=== PATIENT | female | born 1970 | race Caucasian/White ===

== ENCOUNTER 2021-11-07 11:01 | Emergency (ER) | payer SELFPAY ==
[2021-11-07 11:11] VITALS: BP 165/99; PULSE 60; RESP 16; TEMP 36.6; O2SAT 100; BMI 23.5
--- NOTE | 2021-11-07 11:19 | XR_ITS ---
WS: [id number] XR knee RT 3V* [id number] REASON FOR EXAM: injury FINDINGS: No acute fracture. Joint spaces of the right knee are intact and well preserved. No soft tissue abnormality. XR/XR knee RT 3V* [id number] IMPRESSION: No acute abnormality.
--- NOTE | 2021-11-07 11:19 | XRR_ITS ---
PROCEDURE INFORMATION: Exam: XR Chest Exam date and time: 11/07/2021 11:29 AM Age: 51 years old Clinical indication: Injury or trauma; Other: Struck by cow; Blunt trauma (contusions or hematomas); Additional info: Injury, struck by cow a week ago TECHNIQUE: Imaging protocol: XR of the chest. Views: 2 views. COMPARISON: No relevant prior studies available. FINDINGS: Lungs: Unremarkable. No consolidation. Pleural spaces: Unremarkable. No pleural effusion. No pneumothorax. Heart/Mediastinum: Unremarkable. No cardiomegaly. Bones/joints: Unremarkable. XR/XR chest 2V* [id number] IMPRESSION: No acute findings.
--- NOTE | 2021-11-07 11:21 | XR_ITS ---
WS: [id number] XR sternum min 2V [id number] REASON FOR EXAM: injury FINDINGS: Normal manubrium and sternomanubrial junction. There is a mild posterior angulation deformity in the mid sternum which could represent a subacute st ernal fracture. No associated soft tissue swelling is identified. No other significant finding. XR/XR sternum min 2V [id number] IMPRESSION: Sternal abnormality as above.
--- NOTE | 2021-11-07 11:21 | W.ED.CHESTPA ---
HPI - Chest Pain General: Chief Complaint: Chest Pain Stated Complaint: hit by a cow, chest pain Time Seen by Provider: 11/07/21 11:18 History of Present Illness: Patient was struck in the center of her chest by cow last Thursday. Patient states that she has pain in her sternal area with deep inspiration and movement of her arms. Denies cough shortness of breath or other related pains. Patient does have some swelling to her right knee, does not complain pain about it but this occurred after injury. Associated symptoms: Deny abdominal pain, dyspnea, fever(s), nausea or vomiting Review of Systems Const: Denies: fever(s), chills or body aches Eyes: Denies: eye discomfort ENMT: Denies: throat pain Card: Reports: chest pain (Pain to sternal area after injury that occurred last Thursday) Resp: Denies: dyspnea GI: Denies: abdominal pain, nausea or vomiting Musc: Reports: joint swelling (Right knee.) Skin/Breast: Denies: rash Neuro: Denies: headache(s) Psych: Denies: depression or suicidal ideation PFSH ED PFSH: Medical History Depression Surgical History Hx of knee surgery Family History Other Cancer Social History Smoking and tobacco status: never smoked Alcohol intake: never Course Vital Signs: Vital signs: Vital Signs Temperature 97.8 F 11/07/21 11:11 Pulse Rate 60 11/07/21 11:11 Respiratory Rate 16 11/07/21 11:11 Blood Pressure 165/99 11/07/21 11:11 Pulse Oximetry 100 11/07/21 11:11 MDM - Chest Pain Medical Decision Making Patient presents with chest pain secondary to be in head butted by a cow in her sternal area. Patient has pain with range of motion. This accident happened last Thursday. X-rays were done and showed subacute fracture of sternum. Patient does not have any shortness of breath does have bruising and has bruising also to her right calf where she is probably stepped on. Lab Data Radiology Impressions Chest X-Ray 11/07/21 11:19 IMPRESSION: No acute findings. Knee X-Ray 11/07/21 11:19 IMPRESSION: No acute abnormality. Sternum X-Ray 11/07/21 11:21 IMPRESSION: Sternal abnormality as above. Discharge Plan Discharge Patient Disposition: Home Clinical Impression: Sternal fracture, Superficial bruising of lower leg Condition: Stable Prescriptions: New hydrocodone-acetaminophen 5-325 mg tablet 1 tab PO TID PRN (Reason: pain) Qty: 24 0RF No Action ibuprofen 200 mg capsule 200 mg PO Q6H PRN0RF duloxetine 20 mg capsule,delayed release(DR/EC) 20 mg PO DAILY Qty: 90 3RF Discharge Orders: Discharge ED (Routine); Ordered 11/07/21 Ordered By: Noman Chiang Referrals: Dayne Mullins MD [Primary Care Provider] - Adela Miller DO [Family Provider] - Discharge Diet: Usual diet Discharge Activity: Increase activity as tolerated Activity Restrictions/Additional Instructions: Follow-up with medical provider as directed. Take medications as prescribed. Return to the ER or your medical provider if condition worsens. Please read and understand discharge instructions. If any questions ask please. He will take approximately 8 to 10 weeks for that to heal completely. I recommend no heavy lifting or contact sports. Brace chest sternum when coughing or sneezing. Follow-up with primary care provider or return here if worsening symptoms. Coding Level of Care Code ED [employer] for [employer]ves Mann
== END 2021-11-07 12:58 | disposition home or self-care (01) ==
PROVIDERS: Emergency Provider Nurse Practitioner Family; PCP Family Medicine Adult Medicine
DX: S22.20XA Unspecified fracture of sternum, initial encounter for closed fracture (principal); S80.11XA Contusion of right lower leg, initial encounter; W55.22XA Struck by cow, initial encounter
CPT/HCPCS: 71046; 71120; 73562; 99282

== ENCOUNTER → 2023-06-10 16:37 | Outpatient (BNVA) | payer SELFPAY | PROVIDERS: PCP Family Medicine Adult Medicine; Visit Provider Family Medicine Adult Medicine | DX: R07.9 Chest pain, unspecified (principal); G89.29 Other chronic pain; Z91.89 Other specified personal risk factors, not elsewhere classified; R07.1 Chest pain on breathing; R03.0 Elevated blood-pressure reading, without diagnosis of hypertension; I10 Essential (primary) hypertension; F41.9 Anxiety disorder, unspecified; F32.A Depression, unspecified | CPT/HCPCS: 80053; 84443; 85025 ==

== ENCOUNTER 2023-06-11 11:45 | Outpatient (CLI) | payer SELFPAY ==
--- NOTE | 2023-06-11 11:51 | XR_ITS ---
WS: [id number] Chest 2 views, Clinical Data: chest pain Comparison: None. Findings: No nodules, masses or effusions are seen. The heart is normal. The pulmonary vascularity is not increased. No pneumonia or pneumothorax is seen. Impression: Negative chest.
== END 2023-06-11 11:46 | disposition home or self-care (01) ==
PROVIDERS: PCP Family Medicine Adult Medicine; Visit Provider Family Medicine Adult Medicine
DX: R07.9 Chest pain, unspecified (principal)
CPT/HCPCS: 71046

== ENCOUNTER → 2023-12-11 08:03 | Outpatient (BNVA) | payer SELFPAY | PROVIDERS: PCP Family Medicine; Visit Provider Family Medicine | DX: Z01.818 Encounter for other preprocedural examination (principal); R07.9 Chest pain, unspecified; I10 Essential (primary) hypertension; I08.3 Combined rheumatic disorders of mitral, aortic and tricuspid valves | CPT/HCPCS: 93005 ==

== ENCOUNTER 2023-12-24 12:06 | Outpatient (CLI) | payer SELFPAY ==
--- NOTE | 2023-12-24 12:15 | USCV_ITS ---
Georgette Baer Age: 53 Gender: F : 1970 Exam Date: 12/24/2023 12:14 Ordering Phys: Ching Sevilla MD Technologist: [place] Exam Location: [facility] [place] Indication: CHEST PAIN/BALLESTEROS BP: 136 / 82 HR: 60 Rhythm: Sinus Technical Quality: Adequate MEASUREMENTS (Male / Female) Normal Values 2D ECHO LV Diastolic Diameter PLAX 4.4 cm 4.2 - 5.9 / 3.9 - 5.3 cm IVS Diastolic Thickness 1.3 cm 0.6 - 1.0 / 0.6 - 0.9 cm IVS Systolic Thickness 2.0 cm LVPW Diastolic Thickness 1.4 cm 0.6 - 1.0 / 0.6 - 0.9 cm LVPW Systolic Thickness 1.5 cm LVOT Diameter 2.0 cm LV Ejection Fraction 2D Teich 72.3 % LV Ejection Fraction MOD 2C 66.6 % LV Ejection Fraction 2C AL 66.1 % LA Diameter 2.9 cm RA Systolic Volume 4C AL 25.0 ml RA Systolic Volume 4C MOD 23.4 ml LA Sys Volume AL 34.5 cm cubed LA Sys Volume Index AL 19.9 cm cubed/m squared Aorta at Sinotubular Diameter 2.1 cm IVC Diameter 1.9 cm M-MODE LA Ao Ratio MM 0.8 AV Cusp Separation MM 1.6 cm DOPPLER AV Peak Velocity 164.0 cm/s LVOT Peak Velocity 111.0 cm/s AV Area Cont Eq vti 1.9 cm squared AV Area Cont Eq pk 2.1 cm squared MV Peak Velocity 83.0 cm/s MV Area PHT 3.4 cm squared Mitral E to A Ratio 1.1 TR Peak Velocity 249.0 cm/s TR Peak Gradient 24.8 mmHg TR Mean Velocity 211.0 cm/s TR Mean Gradient 18.7 mmHg TR Velocity Time Integral 72.5 cm TV Peak E Velocity 54.0 cm/s Right Atrial Pressure 3.0 mmHg Pulmonary Artery Systolic Pressu 27.8 mmHg RV Ejection Time 0.4 s FINDINGS Left Ventricle Left ventricle is normal in size. LV systolic function is normal with EF of 55 to 60%. No regional wall motion abnormalities are seen. Diastolic function is normal Right Ventricle Normal in size and function. Right Atrium Normal in size Left Atrium Normal in size Mitral Valve Structurally normal mitral valve. Mild mitral regurgitation. Aortic Valve Structurally normal aortic valve. Mild aortic regurgitation. No significant stenosis. Tricuspid Valve Mild tricuspid regurgitation. Insufficient TR jet to calculate RVSP. Pulmonic Valve Not well visualized Pericardium Normal Aorta Normal in size IVC Appears to be normal CONCLUSIONS LV systolic function is normal with EF of 55 to 60%. Diastolic function is normal. Mild mitral regurgitation Mild aortic regurgitation Mild tricuspid regurgitation Compared to prior echocardiogram from 2018, no significant changes are seen Tommie Thomas MD (Electronically Signed) Final Date: 03 Jan 2024 12:36 S
== END 2023-12-24 12:07 | disposition home or self-care (01) ==
LOC: RAD 12:07
PROVIDERS: PCP Family Medicine; Visit Provider Family Medicine
DX: R07.9 Chest pain, unspecified (principal); I35.1 Nonrheumatic aortic (valve) insufficiency; I34.0 Nonrheumatic mitral (valve) insufficiency; I07.1 Rheumatic tricuspid insufficiency
CPT/HCPCS: 93306

== ENCOUNTER 2024-01-28 11:38 | Outpatient (CLI) | payer SELFPAY ==
[2024-01-28 11:58] VITALS: BMI 21.9
--- NOTE | 2024-01-28 12:02 | ECG_ITS ---
[facility] Test Date: 2024-01-28 Pat Name: Georgette Baer Department: Room: Gender: Female Superintendent Operating: : 1970 Requested By: Ching Sevilla Order Number: [id number] Sean MD: Everett Kapoor M.D. Interpretive Statements NAME OF STUDY: TREADMILL STRESS TEST INDICATION: Chest Pain PROCEDURE: At the baseline, the patient's blood pressure was 138/96 with a heart rate of 76. The baseline electrocardiogram showed normal sinus rhythm with nonspecific ST-T changes in the inferior and anterolateral leads.. The patient exercised for 6 minutes and 43 seconds on a standard Fabian protocol. Patient attained a maximum heart rate of 165 beats per minute(99% of the maximum predicted heart rate) with a blood pressure at the peak exercise of 158/46 mm Hg. The EKG at the peak exercise revealed 0.6 to 1.[address] depressions in the inferolateral leads. Patient did not have any chest pain or any significant cardiac arrhythmias with the exercise During the recovery phase, there were no new changes. Blood pressure at the end of the recovery phase was 156/65 mm Hg with a heart rate of 88 per minute. CONCLUSION: 1. Nonspecific EKG response to treadmill exercise 2. No exercise-induced chest pain or cardiac arrhythmia 3. Fair exercise tolerance, attained a maximum of 10.2 METs Electronically Signed On 01-31-2024 21:21:15 CDT by Everett Kapoor M.D. [email or web address]
[2024-01-28 12:43] VITALS: BP 135/46; PULSE 89
== END 2024-01-28 11:39 | disposition home or self-care (01) ==
LOC: CDL 11:38
PROVIDERS: PCP Family Medicine; Visit Provider Family Medicine
DX: R94.39 Abnormal result of other cardiovascular function study (principal); R07.9 Chest pain, unspecified
CPT/HCPCS: 93017

== ENCOUNTER → 2024-05-09 12:45 | Outpatient (BNVA) | payer SELFPAY | PROVIDERS: PCP Family Medicine; Visit Provider Internal Medicine | DX: R00.1 Bradycardia, unspecified (principal); I45.10 Unspecified right bundle-branch block; R07.9 Chest pain, unspecified | CPT/HCPCS: 93005 ==